=== PATIENT | male | born 1955 | race Caucasian/White ===

== ENCOUNTER 2017-05-08 12:15 | Emergency (ER) | payer OTHER ==
[~2017-05-08] VITALS: Ht 167.6 cm; Wt 85.0 kg
[2017-05-08 12:18] VITALS: BP 188/99; PULSE 58; RESP 18; TEMP 97.6; O2SAT 98
[2017-05-08] MEDS ORDERED: PROPARACAINE HCL 0.5% OPHT SOLN 15 ML BTL RIGHT EYE ONE (13:00)
--- NOTE | 2017-05-08 13:42 | PD ---
HPI Chief Complaint: Foreign Body Time Seen by Provider: 12:38 Travel History International Travel<30 days: No Contact w/Intl Traveler<30days: No Traveled to known affect area: No History of Present Illness HPI 62-year-old male presents emergency department with foreign body to the right eye. This is a workplace injury. 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 He went to [facility] for his workers comp, and they referred him here, as they did not feel they could get it out. Patient denies visual changes. He states it happened 2 days ago prior to arrival. Pain is about a 6 out of 10. The right eye has been tearing but no purulent drainage noted. He has no known drug allergies. PFSH Past Medical History Hx Anticoagulant Therapy: Yes (ASA) High Cholesterol: Yes Diminished Hearing: No Medical other: Yes (PROSTATE ) Influenza Vaccination: No Past Surgical History Surgical History: No Previous Surgery Social History Alcohol Use: No Tobacco Use: No Substance Use: No Allergies-Medications (Allergen,Severity, Reaction): Coded Allergies: No Known Allergies (Unverified , 05/08/17) Review of Systems Except as stated in HPI: all other systems reviewed are Neg General / Constitutional: No: Fever Eyes: Positive: Photophobia, Redness, Foreign Body Sensation, Pain, Tearing, No : Diploplia, Blurred Vision, Drainage, Blind Spots, Visual changes, Blindness HENT: No: Headaches Cardiovascular: No: Chest Pain or Discomfort Respiratory: No: Shortness of Breath Gastrointestinal: No: Abdominal Pain Genitourinary: No: Dysuria Musculoskeletal: No: Pain Skin: No Rash Neurologic: No: Weakness Psychiatric: No: Depression Endocrine: No: Polydipsia Hematologic/Lymphatic: No: Easy Bruising Physical Exam Narrative GENERAL: Patient appears in mild distress. SKIN: Warm and dry. Normal color. Normal turgor. HEAD: Atraumatic. Normocephalic. EYES: Pupils equal and round. No scleral icterus. Moderate right eye scleral injection and clear drainage noted. Patient has obvious foreign body in the right cornea at the 4 o'clock position which does not encroach on the pupil. ENT: No nasal bleeding or discharge. Mucous membranes pink and moist. Pharynx is clear. Airways patent. NECK: Trachea midline. Supple CARDIOVASCULAR: Regular rate and rhythm. RESPIRATORY: No accessory muscle use. MUSCULOSKELETAL: Extremities without clubbing, cyanosis, or edema. No obvious deformities. NEUROLOGICAL: Awake and alert. No obvious cranial nerve deficits. Motor grossly within normal limits. Five out of 5 muscle strength in the arms and legs. Normal speech. PSYCHIATRIC: Appropriate mood and affect; insight and judgment normal. Data Data Last Documented VS Vital Signs Date Time Temp Pulse Resp B/P (MAP) Pulse Ox O2 Delivery O2 Flow Rate FiO2 05/08/17 12:18 97.6 58 18 188/99 (128) 98 Room Air Orders Orders Proparacaine 0.5% Opth Soln (Alcaine 0.5 (05/08/17 13:00) MDM Medical Decision Making Medical Screen Exam Complete: Yes Emergency Medical Condition: Yes Differential Diagnosis Workplace injury. Right eye foreign body. Corneal abrasion. Narrative Course The eye was anesthetized with proparacaine with good anesthetic effect. Corneal foreign body was removed without difficulty. Patient was placed on erythromycin ointment every 4 hours for the next week. Patient given ibuprofen 800 mg 3 times daily #30. Patient to follow-up with his workers comp provider as discussed. Work restrictions are to be determined by his workers comp provider today. Diagnosis Primary Impression: Work related injury Additional Impression: Corneal foreign body Qualified Codes: T15.01XA - Foreign body in cornea, right eye, initial encounter Referrals: [facility] Patient Instructions: Eye Foreign Body (ED), General Instructions Additional Instructions: The eye was anesthetized with proparacaine with good anesthetic effect. Corneal foreign body was removed without difficulty. Patient was placed on erythromycin ointment every 4 hours for the next week. Patient given ibuprofen 800 mg 3 times daily #30. Patient to follow-up with his workers comp provider as discussed. Work restrictions are to be determined by his workers comp provider today. Med/Other Pt SpecificInfo: Prescription(s) given Disposition: DISCHARGE HOME Condition: Stable Hadley Jay May 08, 2017 13:42
[2017-05-08] MEDS ORDERED: ERYTOIN10 EACH EYE (13:45)
[2017-05-08] MEDS ORDERED: IBUP1TAB7 PO (13:45)
== END 2017-05-08 14:06 | disposition home or self-care (01) ==
LOC: NEPD 12:15
DX: T15.01XA Foreign body in cornea, right eye, initial encounter (principal); E78.00 Pure hypercholesterolemia, unspecified; X58.XXXA Exposure to other specified factors, initial encounter; Y99.0 Civilian activity done for income or pay
CPT/HCPCS: 65220